=== PATIENT | male | born 1960 | race Two or more races ===

== ENCOUNTER 2025-02-27 07:37 | Outpatient (CLI) | payer OTHER | END 2025-02-27 07:48 | disposition home or self-care (01) | LOC: SONOGRAMA 07:37 | PROVIDERS: ATTEND Surgery | DX: K80.20 Calculus of gallbladder without cholecystitis without obstruction (principal) ==

== ENCOUNTER 2025-03-10 11:17 | Outpatient (CLI) | payer OTHER | END 2025-03-10 11:21 | disposition home or self-care (01) | LOC: RAD 11:17 | PROVIDERS: ATTEND Surgery | DX: K80.20 Calculus of gallbladder without cholecystitis without obstruction (principal); Z01.818 Encounter for other preprocedural examination ==

== ENCOUNTER 2025-03-22 06:00 | Day surgery (SDC) | payer OTHER ==
[2025-03-16 14:59] VITALS: BP 176/90
[~2025-03-22] VITALS: Ht 167.6 cm; Wt 117.9 kg
[~2025-03-22 06:00] MED LIST: VASOTEC2.5 MG PO
[2025-03-22] MEDS ORDERED: METRONIDAZOLE/SODIUM CHLORIDE 500 MG/100 ML PIGGYBACK IV ONE (08:15)
[2025-03-22] MEDS ORDERED: ENOXAPARIN SODIUM 40 MG/0.4 ML SYRINGE SUBCUTANEO ONE (08:15)
[2025-03-22] MEDS ORDERED: BUPIVACAINE HCL 30 ML VIAL IJ ONE (08:15)
[2025-03-22] MEDS ORDERED: CEFTRIAXONE SODIUM 2,000 MG VIAL IV ONE (08:15)
[2025-03-22] MEDS ORDERED: SUGAMMADEX SODIUM 200 MG/2 ML VIAL IV ONE (09:30)
[2025-03-22] MEDS ORDERED: PERCOCET 5-3251 EACH PO (09:46)
[2025-03-22] MEDS ORDERED: MORPHINE SULFATE 4 MG/ML VIAL IV ONE ×2 (09:50→10:20)
== END 2025-03-22 12:50 | disposition home or self-care (01) ==
LOC: CIR.AMB 06:00
PROVIDERS: ATTEND Surgery
DX: K80.10 Calculus of gallbladder with chronic cholecystitis without obstruction (principal)